=== PATIENT | male | born 1960 | race Native Hawaiian/Other Pacific Islander ===

== ENCOUNTER 2017-08-25 13:00 | Inpatient (IN) | payer OTHER ==
[2017-08-25] VITALS (14 sets, daily range): BP systolic 91–114; BP diastolic 54–96; TEMP 97.8–97.9; Ht 175.3 cm; Wt 86.0 kg
[~2017-08-25] VITALS: Ht 175.3 cm; Wt 86.0 kg
[~2017-08-25 13:00] MED LIST: BUSP5TAB2 PO; BUSPIRONE10 MG PO; CEFD300C2 PO; CITA20TA2 PO; DIVA125C PO; DIVA500T2 PO; DIVALPROEX250 MG PO; DONE5TAB PO; ESCI20TA PO; IBUPROFEN200 M1 PO; KEPPRA1000 MG PO; LIPITOR10 MG PO; LORA2INJ21 INJ; MEDR2.5T19 PO; MELOXICAM7.5 MG PO; MICRO-K10 MEQ OR; MICRO-K10 MEQ PO; NAMENDA10 MG OR; OMEP20CA PO; PANTOPRAZOLE 40MG TA PO; PRAZ1CAP16 PO; TEMA15CA19 PO; ZIPR80CA PO
[2017-08-25] MEDS ORDERED: CYAN10009 IM (18:27)
[2017-08-25] MEDS ORDERED: FIBER LAXATIV0.52 GM PO (18:37)
[2017-08-25] MEDS ORDERED: CITALOPRAM20 MG PO (18:41)
[2017-08-26] VITALS (24 sets, daily range): BP systolic 05–113; BP diastolic 43–77; TEMP 97.9–98.2
[2017-08-26 06:03] LABS: PLATELET COUNT 262 K/uL (142-355)
[2017-08-26 06:06] LABS: POTASSIUM 3.8 mmol/L (3.6-5.2)
[2017-08-27] VITALS (24 sets, daily range): BP systolic 90–129; BP diastolic 50–85; TEMP 97.8–98.3
[2017-08-27 05:00] LABS: PLATELET COUNT 215 K/uL (142-355)
[2017-08-27 06:04] LABS: POTASSIUM 3.6 mmol/L (3.6-5.2)
[2017-08-28] VITALS (11 sets, daily range): BP systolic 83–124; BP diastolic 50–81; TEMP 97.6–98.2
[2017-08-28 06:36] LABS: PLATELET COUNT 193 K/uL (142-355)
[2017-08-28 06:51] LABS: POTASSIUM 3.2 mmol/L (3.6-5.2)
[2017-08-28] MEDS ORDERED: CIPRO500 MG PO (12:08)
[2017-08-28] MEDS ORDERED: METR250T19 PO (12:09)
== END 2017-08-28 11:00 | disposition other institution (70) | DRG 389 ==
LOC: ICU 13:00
PROVIDERS: ADMIT Family Medicine
DX: K56.690 Other partial intestinal obstruction (principal); G40.802 Other epilepsy, not intractable, without status epilepticus; F41.1 Generalized anxiety disorder; I10 Essential (primary) hypertension; E78.4 Other hyperlipidemia; D64.89 Other specified anemias; E87.6 Hypokalemia; K21.9 Gastro-esophageal reflux disease without esophagitis; Z86.73 Personal history of transient ischemic attack (TIA), and cerebral infarction without residual deficits; E11.9 Type 2 diabetes mellitus without complications; R06.2 Wheezing; D72.828 Other elevated white blood cell count; F32.89 Other specified depressive episodes; F03.90 Unspecified dementia, unspecified severity, without behavioral disturbance, psychotic disturbance, mood disturbance, and anxiety
CPT/HCPCS: 36415; 80048; 80053; 81000; 82962; 85027; 93005; 94760; J1650; J2270; J2405; J3490; Q9963

== ENCOUNTER 2020-11-22 17:58 | Emergency (ER) | payer OTHER ==
[~2020-11-22] VITALS: Ht 175.3 cm; Wt 93.2 kg
[2020-11-22 17:58] VITALS: BP 132/75; TEMP 97.4
[~2020-11-22 17:58] MED LIST changes: +CIPRO500 MG PO; +CITALOPRAM20 MG PO; +CYAN10009 IM; +FIBER LAXATIV0.52 GM PO; +METR250T19 PO
[2020-11-22 18:41] LABS: PLATELET COUNT 252 K/uL (142-355)
[2020-11-22 18:56] LABS: POTASSIUM 3.9 mmol/L (3.6-5.2)
[2020-11-22] MEDS ORDERED: LIPITOR20 MG PO (23:33)
[2020-11-22] MEDS ORDERED: DOCU100C10 PO (23:40)
[2020-11-22] MEDS ORDERED: KLOR-CON M1010 MEQ PO (23:44)
[2020-11-22] MEDS ORDERED: LINZESS290 MCG PO (23:47)
[2020-11-22] MEDS ORDERED: CLARITIN10 M1 PO (23:49)
[2020-11-22] MEDS ORDERED: MELATONIN10 MG PO (23:51)
[2020-11-22] MEDS ORDERED: OMEPRAZOLE DR20 MG PO (23:53)
[2020-11-22] MEDS ORDERED: REMERON SOLTAB15 MG PO (23:59)
[2020-11-23] MEDS ORDERED: RISP0.25 PO
[2020-11-23] MEDS ORDERED: VITAMIN D1000 UNI1 PO (00:03)
[2020-11-23] MEDS ORDERED: DIVA250T2 PO (00:06)
[2020-11-23] MEDS ORDERED: CLON1TAB18 PO (00:08)
[2020-11-23] MEDS ORDERED: LAMICTAL25 MG PO (00:10)
[2020-11-23] MEDS ORDERED: SPRITAM500 MG PO (00:12)
[2020-11-23] MEDS ORDERED: ACETAMINOPHEN PO (00:18)
[2020-11-23] MEDS ORDERED: IPRATROPIUM/ INH (00:22)
[2020-11-23] MEDS ORDERED: MILK OF MAGNESI1 SU1 PO (00:25)
[2020-11-23] MEDS ORDERED: ONDA4TAB3 PO (00:27)
== END 2020-11-22 19:16 | disposition other institution (70) ==
LOC: ED 18:04
PROVIDERS: Family Medicine
DX: R46.89 Other symptoms and signs involving appearance and behavior (principal); I10 Essential (primary) hypertension; Z11.52 Encounter for screening for COVID-19; Z04.6 Encounter for general psychiatric examination, requested by authority
CPT/HCPCS: 36415; 80053; 85027; 87635; 93005; 99283; U0003